=== PATIENT | male | born 1975 | race Caucasian/White ===

== ENCOUNTER 2018-01-08 16:06 | Emergency (ER) | payer OTHER, MEDICARE, MEDICAID ==
[2018-01-08] MEDS ORDERED: Adacel (T-DAP) 0.5 ML VIAL ONE (16:18)
[2018-01-08 16:26] LABS: Mean Corpuscular HGB CONC 33.4 g/dL (32.0-36.0); Mean Corpuscular Hemoglobin 32.5 pg (27.0-31.0); Mean Corpuscular Volume 97.2 fl (80.0-94.0); Mean Platelet Volume 8.9 fL (7.4-10.4); Platelet Count 287 thou/uL (130-400); RBC Distribution Width 12.6 % (11.5-14.5); Red Blood Cell (RBC) Count 4.93 mill/uL (4.70-6.10); White Blood Cell (WBC) Count 24.5 thou/uL (4.8-10.8)
[2018-01-08 16:40] LABS: Band 1 % (5-11); Eosinophils 2 % (0-10); Lymphocytes 18 % (21-51); MDiff Complete? YES; Monocytes 3 % (0-10); Neutrophil 67 % (42-75); PLT Morphology Comment Appears Adequate; RBC Morphology Normal; Reactive Lymphocytes 7 % (0-10)
[2018-01-08 16:47] LABS: ALT (SGPT) 40 U/L (8-55); AST (SGOT) 38 U/L (5-34); Albumin 4.1 g/dL (3.5-5.0); Alkaline Phosphatase 86 U/L (40-150); Anion Gap 14 mmol/L (10-20); BUN (Urea Nitrogen) 16 mg/dL (8.9-20.6); Bilirubin, Total 0.4 mg/dL (0.2-1.2); Calc. Creatinine Clearance 0 mL/min (70-130); Calcium 9.5 mg/dL (7.8-10.44); Carbon Dioxide 22 mmol/L (22-29); Chloride 105 mmol/L (98-107); Estimated GFR-MDRD 76; Globulin 3.3 g/dL (2.4-3.5); Glucose 121 mg/dL (70-105); Potassium 4.4 mmol/L (3.5-5.1); Protein, Total 7.4 g/dL (6.0-8.3); Sodium 137 mmol/L (136-145)
[2018-01-08] MEDS ORDERED: CEFAZOLIN/Water 2 GM/20 ML SYRINGE ONE (16:47)
[2018-01-08] MEDS ORDERED: Lidocaine 2% Jelly 5 ML TUBE ONE (16:49)
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
[2018-01-08] MEDS ORDERED: Ketorolac Tromethamine 30 MG/ML VIAL ONE (17:03)
[2018-01-08 17:21] LABS: Bilirubin Negative (Negative); Blood, Urine Negative (Negative); Clarity CLEAR (Clear); Glucose, Urine (Dipstick) Negative (Negative); Leukocyte Negative (Negative); Nitrite Negative (Negative); Protein, Urine (Dipstick) 30 mg/dL (Neg-Trace)
[2018-01-08 17:24] LABS: Bacteria/HPF None Seen HPF (None Seen); Hyaline Casts/LPF 4-6 HYALINE CAST LPF (0-3 Hyaline); Pathc Cast-AUWi Flag 0.54 (0-2.49); RBC/HPF 0-3 HPF (0-3); Squamous Epithelial 0-3 HPF (0-3); WBC/HPF 0-3 HPF (0-3)
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
[2018-01-08 17:28] LABS: Specific Gravity, Urine 1.045 (1.002-1.036); Sperm-AUWi Flag 83.4 (0-9.9)
[2018-01-08 17:38] LABS: Renal Epithelial None Seen HPF (0-3); Sperm/HPF 1+ HPF (None Seen); Transitional Epithelial NONE SEEN HPF (0-3)
[2018-01-08] MEDS ORDERED: Bacitracin Zinc 1 Packet ONE (17:46)
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
== END 2018-01-08 17:56 | disposition home or self-care (01) ==
LOC: ERS 16:06
DX: T14.8XXA Other injury of unspecified body region, initial encounter (principal); F31.9 Bipolar disorder, unspecified; F17.210 Nicotine dependence, cigarettes, uncomplicated; Z23 Encounter for immunization; Z71.6 Tobacco abuse counseling; V27.4XXA Motorcycle driver injured in collision with fixed or stationary object in traffic accident, initial encounter
CPT/HCPCS: 70450; 71260; 72125; 74177; 80053; 81003; 81015; 85025; 90471; 90715; 96374; 96375; 99406; G0390; J1885

== ENCOUNTER 2018-01-12 00:58 | Emergency (ER) | payer MEDICARE, MEDICAID ==
[2018-01-12] MEDS ORDERED: Ketorolac Tromethamine 30 MG/ML VIAL ONE (02:15)
[2018-01-12] MEDS ORDERED: traMADol HCl 50 MG TAB ONE (02:22)
[2018-01-12] MEDS ORDERED: Bacitracin Zinc 1 Packet ONE (02:59)
== END 2018-01-12 03:00 | disposition home or self-care (01) ==
LOC: ERS 00:58
DX: S30.811A Abrasion of abdominal wall, initial encounter (principal); I10 Essential (primary) hypertension; F31.9 Bipolar disorder, unspecified; F17.210 Nicotine dependence, cigarettes, uncomplicated; V29.9XXA Motorcycle rider (driver) (passenger) injured in unspecified traffic accident, initial encounter
CPT/HCPCS: 96372; J1885

== ENCOUNTER 2018-03-23 09:54 | Emergency (ER) | payer MEDICARE, MEDICAID ==
--- NOTE | 2018-03-23 14:15 | ULT ---
RIGHT LOWER EXTREMITY VENOUS DOPPLER ULTRASOUND EVALUATION: History Right lower extremity pain and swelling for 1 month. FINDINGS: Multiple longitudinal and transverse images of the right lower extremity venous system are obtained u sing a Multihertz linear ray transducer. Real-time color flow with spectral waveform Doppler analysi s demonstrates no evidence of acute or old clot seen in the right common femoral vein, superior vena cava, popliteal vein, posterior tibial vein, and post trifurcation veins. There do appear to be areas of clot seen in the right greater saphenous vein beginning in the proxima l calf extending to the mid calf.. The distal aspect of the greater saphenous vein is not seen. IMPRESSION: Acute noncompressive clot in the right greater saphenous vein. POS: [facility]
== END 2018-03-23 13:45 | disposition home or self-care (01) ==
LOC: ERS 09:54
DX: I82.401 Acute embolism and thrombosis of unspecified deep veins of right lower extremity (principal); I10 Essential (primary) hypertension; F31.9 Bipolar disorder, unspecified; F17.210 Nicotine dependence, cigarettes, uncomplicated

== ENCOUNTER 2018-09-20 19:24 | Inpatient (IN) | payer MEDICARE, MEDICAID ==
[2018-09-20] MEDS ORDERED: Morphine 4 MG/ML VIAL ONE ×2 (20:06→20:55)
[2018-09-20 20:32] LABS: Hemoglobin 14.9 g/dL (14.0-18.0); Mean Corpuscular HGB CONC 32.5 g/dL (32.0-36.0); Mean Corpuscular Hemoglobin 31.7 pg (27.0-31.0); Mean Corpuscular Volume 97.5 fL (78.0-98.0); Mean Platelet Volume 9.1 fL (7.4-10.4); Platelet Count 294 thou/uL (130-400); RBC Distribution Width 12.5 % (11.5-14.5); Red Blood Cell (RBC) Count 4.69 mill/uL (4.70-6.10); White Blood Cell (WBC) Count 33.7 thou/uL (4.8-10.8)
[2018-09-20] MEDS ORDERED: MEROPENEM 1 GM/50 ML 1 GM in Premix Bag 1 BAG IVPB SCH ×2 (20:45→23:00)
[2018-09-20] MEDS ORDERED: metroNIDAZOLE 500 MG in Premix Bag 1 BAG IVPB SCH (20:45)
[2018-09-20 20:53] LABS: Lymphocytes 14 % (21-51); MDiff Complete? YES; Monocytes 5 % (0-10); Neutrophil 81 % (42-75); PLT Morphology Comment Appears Adequate; RBC Morphology Normal
[2018-09-20 21:23] LABS: Albumin 3.9 g/dL (3.5-5.0)
[2018-09-20 21:24] LABS: Chloride 106 mmol/L (98-107); Potassium 4.1 mmol/L (3.5-5.1); Sodium 138 mmol/L (136-145)
[2018-09-20 21:25] LABS: Calcium 8.4 mg/dL (7.8-10.44); Glucose 98 mg/dL (70-105)
[2018-09-20 21:26] LABS: Globulin 3.1 g/dL (2.4-3.5)
[2018-09-20 21:27] LABS: Anion Gap 14 mmol/L (10-20); Bilirubin, Total 1.5 mg/dL (0.2-1.2); Carbon Dioxide 22 mmol/L (22-29)
[2018-09-20 21:28] LABS: Alkaline Phosphatase 73 U/L (40-150)
[2018-09-20 21:29] LABS: Calc. Creatinine Clearance 0 mL/min (70-130); Estimated GFR-MDRD Greater than 90
[2018-09-20 21:30] LABS: BUN (Urea Nitrogen) 10 mg/dL (8.9-20.6)
[2018-09-20 21:31] LABS: ALT (SGPT) 20 U/L (8-55); AST (SGOT) 15 U/L (5-34); Lipase 4 U/L (8-78)
--- NOTE | 2018-09-20 22:26 | ULT ---
BILATERAL LOWER EXTREMITY VENOUS DOPPLER ULTRASOUND: 09/20/2018 HISTORY: Pain. Elevated white blood cell. Tachycardia. Questionable history of right leg clot. COMPARISON: None. TECHNIQUE: Multiplanar brooks-scale sonographic imaging of the venous structures of the bilateral lower extremitie s obtained with color-flow and spectral analysis. FINDINGS: The common femoral vein, greater saphenous vein, profunda femoral vein, femoral vein, popliteal vein, and posterior tibial vein are patent. There is normal blood flow, augmentation, and compression wit hin the deep venous system bilaterally with no evidence for DVT on either side. IMPRESSION: No evidence for deep venous thrombosis of either lower extremity. POS: [facility]
[2018-09-20 22:33] VITALS: BMI 39.0
[2018-09-20] MEDS ORDERED: Ondansetron ODT 4 MG TAB SL PRN (22:42)
[2018-09-20] MEDS ORDERED: Ondansetron PF 4 MG/2 ML Vial IVP PRN (22:42)
[2018-09-20] MEDS ORDERED: Acetaminophen 325 MG TAB PO PRN (23:34)
[2018-09-21] MEDS: Morphine 2 MG/ML SYRINGE SLOW IVP PRN ×3 (00:01→14:16)
[2018-09-21] MEDS: D5 1/2 NS w/20 mEq KCL 1,000 ML IV SCH ×2 (00:04→08:35)
[2018-09-21] MEDS: metroNIDAZOLE 500 MG in Premix Bag 1 BAG IVPB SCH ×2 (00:06→08:03)
[2018-09-21] MEDS: MEROPENEM 1 GM/50 ML 1 GM in Premix Bag 1 BAG IVPB SCH ×2 (00:10→10:08)
[2018-09-21] MEDS ORDERED: Azithromycin 500 MG in Sodium Chloride 0.9% 250 ML 250 ML IVPB SCH (04:00)
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
[2018-09-21 05:20] LABS: Anion Gap 13 mmol/L (10-20); BUN (Urea Nitrogen) 11 mg/dL (8.9-20.6); Calc. Creatinine Clearance 178 mL/min (70-130); Calcium 8.7 mg/dL (7.8-10.44); Carbon Dioxide 21 mmol/L (22-29); Chloride 105 mmol/L (98-107); Estimated GFR-MDRD Greater than 90; Glucose 106 mg/dL (70-105); Potassium 4.3 mmol/L (3.5-5.1); Sodium 135 mmol/L (136-145)
[2018-09-21 05:35] LABS: Hemoglobin 13.9 g/dL (14.0-18.0); Lymphocytes 7 % (21-51); MDiff Complete? YES; Mean Corpuscular HGB CONC 31.9 g/dL (32.0-36.0); Mean Corpuscular Hemoglobin 31.4 pg (27.0-31.0); Mean Corpuscular Volume 98.3 fL (78.0-98.0); Mean Platelet Volume 9.6 fL (7.4-10.4); Monocytes 2 % (0-10); Neutrophil 91 % (42-75); PLT Morphology Comment Appears Adequate; Platelet Count 279 thou/uL (130-400); RBC Distribution Width 12.5 % (11.5-14.5); RBC Morphology Normal; Red Blood Cell (RBC) Count 4.42 mill/uL (4.70-6.10); White Blood Cell (WBC) Count 34.3 thou/uL (4.8-10.8)
[2018-09-21] MEDS: Amlodipine 5 MG TAB PO SCH (09:35)
[2018-09-21] MEDS: Sodium Chloride 0.9% 1,000 ML IV SCH ×3 (10:08→21:32)
[2018-09-21] MEDS: Enoxaparin Sodium 40 MG/0.4 ML SYRINGE SC SCH (10:21)
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
[2018-09-21] MEDS: Piperacillin/Tazobactam 4.5 GM in Sodium Chloride 0.9% 100 ML IVPB SCH ×2 (17:11→21:33)
[2018-09-21] MEDS: Ketorolac Tromethamine 30 MG/ML VIAL IVP SCH (18:14)
[2018-09-21] MEDS: Acetaminophen 1,000 MG in Premix Bag 1 BAG IVPB SCH (18:18)
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
[2018-09-22] MEDS: Ketorolac Tromethamine 30 MG/ML VIAL IVP SCH ×4 (00:52→17:39)
[2018-09-22] MEDS: Acetaminophen 1,000 MG in Premix Bag 1 BAG IVPB SCH ×4 (00:53→17:39)
--- NOTE | 2018-09-22 03:21 | PDOC.PN ---
- Subjective Encounter Start Date: 09/21/18 Encounter Start Time: 09:00 Subjective: pt up in bed complains of abdomen pain - Objective Resuscitation Status: Resuscitation Status FULL:Full Resuscitation Vital Signs & Weight: Vital Signs (12 hours) Temp Pulse Resp BP Pulse Ox 09/21/18 20:25 97.8 F 84 16 120/71 96 09/21/18 15:58 98.5 F 93 18 136/65 98 Weight Weight 249 lb 4 oz I&O: 09/20/18 09/21/18 09/22/18 06:59 06:59 06:59 Intake Total 800 Output Total 825 Balance -25 Result Diagrams: 09/21/18 04:25 09/21/18 04:25 Phys Exam - Physical Examination Neck: no nodes, no JVD, supple, full ROM Respiratory: no wheezing, no rales, no rhonchi, wheezing present, clear to auscultation bilateral Cardiovascular: RRR, no significant murmur, no rub, gallop, irregular Gastrointestinal: soft, positive bowel sounds mild abdomen pain on palpation of lower abdomen Dx/Plan (1) Diverticulitis Code(s): K57.92 - DVTRCLI OF INTEST, PART UNSP, W/O PERF OR ABSCESS W/O BLEED Status: Acute (2) DVT (deep venous thrombosis) Code(s): I82.409 - ACUTE EMBOLISM AND THOMBOS UNSP DEEP VN UNSP LOWER EXTREMITY Status: Acute - Plan pt had unprovoked dvt and has been on AC for 3-4 months -: will discontinue meropenem since no indication for perforation on ct -: continue iv fluids and npo status -: Ac on hold * . Review of Systems - Review of Systems Respiratory: negative: Cough, Dry, Shortness of Breath, Hemoptysis, SOB with Excertion, Pleuritic Pain, Sputum, Wheezing Cardiovascular: negative: chest pain, palpitations, orthopnea, paroxysmal nocturnal dyspnea, edema, light headedness, other Gastrointestinal: Abdominal Pain Genitourinary: negative: Dysuria, Frequency, Incontinence, Hematuria, Retention , Other - Medications/Allergies Allergies/Adverse Reactions: Allergies Allergy/AdvReac Type Severity Reaction Status Date / Time codeine Allergy Verified 09/20/18 22:35 Medications: Current Medications Amlodipine Besylate (Norvasc) 5 mg PO DAILY [facility] Last Admin: 09/21/18 09:35 Dose: Not Given Enoxaparin Sodium (Lovenox) 40 mg SC DAILY [facility] Last Admin: 09/21/18 10:21 Dose: Not Given Sodium Chloride (Normal Saline 0.9%) 1,000 mls @ 100 mls/hr IV .Q10H [facility] Last Admin: 09/21/18 21:32 Dose: 1,000 mls Acetaminophen 1,000 mg/ Device 100 mls @ 400 mls/hr IVPB Q6HR [facility] Stop: 09/22/18 18:01 Last Admin: 09/22/18 00:53 Dose: 100 mls Piperacillin Sod/Tazobactam (Sod 4.5 gm/ Sodium Chloride) 100 mls @ 200 mls/hr IVPB 0400,1000,1600,2200 [facility] Last Admin: 09/21/18 21:33 Dose: 100 mls Ketorolac Tromethamine (Toradol) 30 mg IVP Q6HR [facility] Stop: 09/26/18 18:01 Last Admin: 09/22/18 00:52 Dose: 30 mg Morphine Sulfate (Morphine) 2 mg SLOW IVP Q6H PRN PRN Reason: Moderate to Severe Pain (6-10) Last Admin: 09/21/18 14:16 Dose: 2 mg Sodium Chloride (Flush - Normal Saline) 10 ml IVF Q12HR [facility] Last Admin: 09/21/18 21:40 Dose: 10 ml Sodium Chloride (Flush - Normal Saline) 10 ml IVF PRN PRN PRN Reason: Saline Flush
[2018-09-22] MEDS: Piperacillin/Tazobactam 4.5 GM in Sodium Chloride 0.9% 100 ML IVPB SCH ×4 (04:40→21:54)
[2018-09-22 05:14] LABS: #Basophils 0.1 thou/uL (0.0-0.2); #Eosinphils 0.5 thou/uL (0.0-0.7); #Lymphocytes 4.1 thou/uL (1.20-3.40); #Monocytes 2.3 thou/uL (0.11-0.59); #Neutrophils 16.1 thou/uL (1.40-6.50); %Basophils 0.4 % (0.0-1.0); %Eosinophils 2.1 % (0.0-10.0); %Lymphocytes 17.8 % (21.0-51.0); %Monocytes 10.1 % (0.0-10.0); %Neutrophils 69.6 % (42.0-75.0); Mean Corpuscular HGB CONC 30.6 g/dL (32.0-36.0); Mean Platelet Volume 9.9 fL (7.4-10.4); Platelet Count 273 thou/uL (130-400); RBC Distribution Width 12.4 % (11.5-14.5); Red Blood Cell (RBC) Count 4.33 mill/uL (4.70-6.10); White Blood Cell (WBC) Count 23.2 thou/uL (4.8-10.8)
[2018-09-22] MEDS: Amlodipine 5 MG TAB PO SCH (09:33)
[2018-09-22] MEDS: Enoxaparin Sodium 40 MG/0.4 ML SYRINGE SC SCH (10:40)
--- NOTE | 2018-09-22 13:01 | PQF ---
DATE: 09-22-18 ATTN : DR. BIMAL SALCEDO Please exercise your independent, professional judgment in responding to the clarification form. Clinical indicators are provided on the bottom of this form for your review Please check appropriate box(es): [ ] Sepsis due to: (Perforated Diverticulitis, etc.) _ [ ] SIRS due to non-infectious process (please specify etiology) [ ] Localized infection without sepsis [ ] Other diagnosis [ ] Unable to determine In addition, please specify: Present on Admission (POA): [ ] Yes [ ] No [ ] Unable to determine For continuity of documentation, please document condition throughout progress notes and discharge summary. Thank You. CLINICAL INDICATORS - SIGNS / SYMPTOMS / LABS ER DX: COMPLICATED DIVERTICULITIS, SEPSIS H&P: ACUTE PERFORATED DIVERTICULITIS ER DOCUMENTATION: PT PRESENTED TO [place] WITH ABD PAIN WELL N/V/D LAST FEW DAYS, TEMP 102.6, PT WAS TACHY AT 114, WC WAS 34,000, LACTATE OF 2.[address] GONGORA 09-21-18: ANTICOAGULATED DIVERTICULITIS WBC: 09-20-18: 33.7 09-21-18: 34.3 09-22-18: 23.2 PULSE: ER: 105, 102 11-20-17: 105 RISK FACTORS: ER DX: COMPLICATED DIVERTICULITIS, SEPSIS H&P: ACUTE PERFORATED DIVERTICULITIS TREATMENTS: ER: MEROPENEM IV, METRONIDAZOLE IN NACL IV, LEVAQUIN IV, IVF (This form is maintained as a part of the permanent medical record) 2014 [employer] All Rights Reserved JEANE [email or web address] Office: [phone] [facility] HOSPITALSus[facility]
[2018-09-22] MEDS: Sodium Chloride 0.9% 1,000 ML IV SCH (15:06)
--- NOTE | 2018-09-22 15:59 | PRG ---
DATE OF SERVICE: 09/22/2018 SUBJECTIVE: Mr. Muhammad is doing better today. He is hungry. OBJECTIVE: VITAL SIGNS: Temperature 97.5 degrees, 81, 152/74. LUNGS: Clear to auscultation. CARDIAC: Regular rate and rhythm without murmur or gallop. ABDOMEN: Obese, protuberant, slight tenderness and guarding in the lower abdomen, but much less tend er upper abdomen. LABORATORY DATA: This morning, his white count is decreased to 23,000 from 33,000 on admission. Bas ic metabolic profile essentially unremarkable. Sodium 135. ASSESSMENT AND PLAN: Resolving diverticulitis. Continue Zosyn high dose. Advance to clear liquids. Dr. Sorto will see the patient tomorrow. Dr. Cohen will be covering over the holidays. Patient should be discharged home on a low fiber diet for 2-3 weeks, transition to high fiber. We will ask khushbu navarro to see him regarding that.
--- NOTE | 2018-09-22 18:09 | PDOC.PN ---
- Subjective Encounter Start Date: 09/22/18 Encounter Start Time: 11:00 Patient seen and examined for Sepsis. Abd pain improving. No new complaints. No overnight events - Objective Resuscitation Status: Resuscitation Status FULL:Full Resuscitation MAR Reviewed: Yes Vital Signs & Weight: Vital Signs (12 hours) Temp Pulse Resp BP Pulse Ox 09/22/18 16:45 97 09/22/18 16:20 97.6 F 77 18 132/88 97 09/22/18 15:22 97.8 F 82 16 129/87 98 09/22/18 11:52 97.5 F L 81 18 152/74 H 97 09/22/18 09:33 69 09/22/18 07:55 97.5 F L 69 18 118/70 96 Weight Weight 251 lb 11.2 oz I&O: 09/21/18 09/22/18 09/23/18 06:59 06:59 06:59 Intake Total 800 1600 Output Total 825 800 Balance -25 800 Result Diagrams: 09/23/18 03:41 09/23/18 03:41 EKG Reviewed by me: Yes (Tele SR) Phys Exam - Physical Examination Constitutional: NAD Respiratory: no wheezing, no rhonchi Cardiovascular: RRR, no rub Gastrointestinal: soft, positive bowel sounds mild gen tenderness/ no rebound/guarding Musculoskeletal: no edema Neurological: moves all 4 limbs Dx/Plan - Plan DVT proph w/SCDs 1. Sepsis due to Acute complicated Diverticulitis 2. HTN 3. Tobacco dep 4. h/o DVT - on anticoag - completed 3 months Tx 5. Obesity BMI 39.4 PLAN Clear liqd diet per Gen surg Cont Zosyn Cont IVF Transfer to medical AM labs Review of Systems - Review of Systems Cardiovascular: negative: chest pain, palpitations, orthopnea, paroxysmal nocturnal dyspnea, edema, light headedness, other Gastrointestinal: negative: Nausea, Vomiting, Abdominal Pain, Diarrhea, Constipation, Melena, Hematochezia, Other - Medications/Allergies Allergies/Adverse Reactions: Allergies Allergy/AdvReac Type Severity Reaction Status Date / Time codeine Allergy Verified 09/20/18 22:35 Medications: Current Medications Amlodipine Besylate (Norvasc) 5 mg PO DAILY [facility] Last Admin: 09/22/18 09:33 Dose: 5 mg Sodium Chloride (Normal Saline 0.9%) 1,000 mls @ 100 mls/hr IV .Q10H [facility] Last Admin: 09/22/18 15:06 Dose: Not Given Piperacillin Sod/Tazobactam (Sod 4.5 gm/ Sodium Chloride) 100 mls @ 200 mls/hr IVPB 0400,1000,1600,2200 [facility] Last Admin: 09/22/18 15:29 Dose: 100 mls Ketorolac Tromethamine (Toradol) 30 mg IVP Q6HR [facility] Stop: 09/26/18 18:01 Last Admin: 09/22/18 17:39 Dose: Not Given Morphine Sulfate (Morphine) 2 mg SLOW IVP Q6H PRN PRN Reason: Moderate to Severe Pain (6-10) Last Admin: 09/21/18 14:16 Dose: 2 mg Sodium Chloride (Flush - Normal Saline) 10 ml IVF Q12HR [facility] Last Admin: 09/22/18 09:33 Dose: 10 ml Sodium Chloride (Flush - Normal Saline) 10 ml IVF PRN PRN PRN Reason: Saline Flush
[2018-09-23] MEDS: Ketorolac Tromethamine 30 MG/ML VIAL IVP SCH ×5 (01:34→22:14)
[2018-09-23] MEDS: Morphine 2 MG/ML SYRINGE SLOW IVP PRN (01:35)
[2018-09-23] MEDS: Sodium Chloride 0.9% 1,000 ML IV SCH ×3 (01:37→20:07)
[2018-09-23 01:48] LABS: CKMB 5.5 ng/mL (0-6.6); Troponin I Less than 0.010 ng/mL (< 0.028)
[2018-09-23] MEDS: Piperacillin/Tazobactam 4.5 GM in Sodium Chloride 0.9% 100 ML IVPB SCH ×4 (03:33→21:07)
[2018-09-23 04:35] LABS: #Basophils 0.2 thou/uL (0.0-0.2); #Eosinphils 0.6 thou/uL (0.0-0.7); #Lymphocytes 4.5 thou/uL (1.20-3.40); #Monocytes 1.8 thou/uL (0.11-0.59); #Neutrophils 11.3 thou/uL (1.40-6.50); %Basophils 1.1 % (0.0-1.0); %Eosinophils 3.3 % (0.0-10.0); %Lymphocytes 24.3 % (21.0-51.0); %Monocytes 9.9 % (0.0-10.0); %Neutrophils 61.5 % (42.0-75.0); Hemoglobin 13.2 g/dL (14.0-18.0); Mean Corpuscular Hemoglobin 31.6 pg (27.0-31.0); Mean Corpuscular Volume 98.9 fL (78.0-98.0); Mean Platelet Volume 9.9 fL (7.4-10.4); Platelet Count 301 thou/uL (130-400); RBC Distribution Width 12.4 % (11.5-14.5); Red Blood Cell (RBC) Count 4.17 mill/uL (4.70-6.10); White Blood Cell (WBC) Count 18.3 thou/uL (4.8-10.8)
[2018-09-23 05:16] LABS: ALT (SGPT) 22 U/L (8-55); AST (SGOT) 27 U/L (5-34); Albumin 3.6 g/dL (3.5-5.0); Alkaline Phosphatase 82 U/L (40-150); Anion Gap 14 mmol/L (10-20); BUN (Urea Nitrogen) 7 mg/dL (8.9-20.6); Bilirubin, Total 0.5 mg/dL (0.2-1.2); Calc. Creatinine Clearance 198 mL/min (70-130); Calcium 9.1 mg/dL (7.8-10.44); Carbon Dioxide 25 mmol/L (22-29); Chloride 105 mmol/L (98-107); Estimated GFR-MDRD Greater than 90; Globulin 3.5 g/dL (2.4-3.5); Glucose 97 mg/dL (70-105); Magnesium 2.3 mg/dL (1.6-2.6); Potassium 3.8 mmol/L (3.5-5.1); Protein, Total 7.1 g/dL (6.0-8.3); Sodium 140 mmol/L (136-145)
[2018-09-23 08:06] LABS: CKMB 5.4 ng/mL (0-6.6); Troponin I Less than 0.010 ng/mL (< 0.028)
[2018-09-23] MEDS: Amlodipine 5 MG TAB PO SCH (08:38)
[2018-09-23] MEDS: Saccharomyces boulardii 250 MG CAP PO SCH (08:38)
--- NOTE | 2018-09-23 09:04 | PRG ---
DATE OF SERVICE: 09/23/2018 SUBJECTIVE: The patient says he feels a lot better. He is hungry and wants some more to eat. He is passing some liquid stools, some flatus. He really wants to go home. OBJECTIVE: VITAL SIGNS: On examination, his temperature is 97.8, pulse 75, blood pressure 144/89. GENERAL: He looks much better. ABDOMEN: Still a little bit distended, minimal tenderness, it is almost completely resolved. LABORATORY DATA: His white count is 18.3, down from a high of 34, and 23 yesterday; H and H 13 and 4 1, platelet count 301. ASSESSMENT: Improved diverticulitis. PLAN: Full liquid diet. He is not ready to go home and he needs at least another day or two of IV a ntibiotics.
[2018-09-23 14:07] LABS: CKMB 5.7 ng/mL (0-6.6); Troponin I Less than 0.010 ng/mL (< 0.028)
[2018-09-23] MEDS: Famotidine 20 MG TAB PO SCH (20:07)
[2018-09-24] MEDS: Ketorolac Tromethamine 30 MG/ML VIAL IVP SCH (04:49)
[2018-09-24] MEDS: Sodium Chloride 0.9% 1,000 ML IV SCH (04:49)
[2018-09-24] MEDS: Piperacillin/Tazobactam 4.5 GM in Sodium Chloride 0.9% 100 ML IVPB SCH (04:49)
[2018-09-24 05:44] LABS: Band 3 % (5-11); Eosinophils 3 % (0-10); Hemoglobin 13.7 g/dL (14.0-18.0); Lymphocytes 34 % (21-51); MDiff Complete? YES; Mean Corpuscular HGB CONC 31.4 g/dL (32.0-36.0); Mean Corpuscular Hemoglobin 30.8 pg (27.0-31.0); Mean Corpuscular Volume 98.1 fL (78.0-98.0); Mean Platelet Volume 9.6 fL (7.4-10.4); Monocytes 11 % (0-10); Neutrophil 49 % (42-75); Platelet Count 329 thou/uL (130-400); RBC Distribution Width 12.5 % (11.5-14.5); Red Blood Cell (RBC) Count 4.43 mill/uL (4.70-6.10); White Blood Cell (WBC) Count 16.2 thou/uL (4.8-10.8)
[2018-09-24 05:58] LABS: Albumin 3.6 g/dL (3.5-5.0)
[2018-09-24 05:59] LABS: Calcium 9.2 mg/dL (7.8-10.44); Chloride 109 mmol/L (98-107); Magnesium 2.3 mg/dL (1.6-2.6); Sodium 142 mmol/L (136-145)
[2018-09-24 06:00] LABS: Glucose 95 mg/dL (70-105)
[2018-09-24 06:01] LABS: Globulin 3.1 g/dL (2.4-3.5); Protein, Total 6.7 g/dL (6.0-8.3)
[2018-09-24 06:02] LABS: Anion Gap 11 mmol/L (10-20); Bilirubin, Total 0.7 mg/dL (0.2-1.2); Carbon Dioxide 26 mmol/L (22-29)
[2018-09-24 06:03] LABS: Alkaline Phosphatase 74 U/L (40-150)
[2018-09-24 06:04] LABS: BUN (Urea Nitrogen) 5 mg/dL (8.9-20.6); Calc. Creatinine Clearance 186 mL/min (70-130); Estimated GFR-MDRD Greater than 90
[2018-09-24 06:05] LABS: AST (SGOT) 28 U/L (5-34)
[2018-09-24 06:06] LABS: ALT (SGPT) 28 U/L (8-55)
[2018-09-24] MEDS ORDERED: Sodium Chloride 0.9% 1,000 ML IV SCH (06:28)
--- NOTE | 2018-09-24 06:29 | PDOC.PN ---
- Subjective Encounter Start Date: 09/23/18 Encounter Start Time: 10:30 Patient seen and examined on 09/23. Abd pain improving. No N/V. Had loose BM earlier today. No new complaints. No overnight events - Objective Resuscitation Status: Resuscitation Status FULL:Full Resuscitation MAR Reviewed: Yes Vital Signs & Weight: Vital Signs (12 hours) Temp Pulse Resp BP Pulse Ox 09/23/18 20:00 98.2 F 71 18 132/91 H 98 Weight Weight 251 lb 11.2 oz I&O: 09/22/18 09/23/18 09/24/18 06:59 06:59 06:59 Intake Total 1600 Output Total 800 Balance 800 Result Diagrams: 09/24/18 04:11 09/24/18 05:37 Phys Exam - Physical Examination Constitutional: NAD Respiratory: no wheezing, no rhonchi Cardiovascular: RRR, no rub Gastrointestinal: soft, positive bowel sounds mild gen tend, no rebound/guarding Musculoskeletal: no edema Neurological: non-focal Dx/Plan - Plan DVT proph w/SCDs 1. Sepsis due to Acute complicated Diverticulitis 2. HTN 3. Tobacco dep 4. h/o DVT - on anticoag - completed 3 months Tx 5. Obesity BMI 39.4 PLAN Full liqd diet Cont Zosyn WBC improving Cont IVF AM labs Review of Systems - Review of Systems Respiratory: negative: Cough, Dry, Shortness of Breath, Hemoptysis, SOB with Excertion, Pleuritic Pain, Sputum, Wheezing Cardiovascular: negative: chest pain, palpitations, orthopnea, paroxysmal nocturnal dyspnea, edema, light headedness, other - Medications/Allergies Allergies/Adverse Reactions: Allergies Allergy/AdvReac Type Severity Reaction Status Date / Time codeine Allergy Verified 09/20/18 22:35 Medications: Current Medications Amlodipine Besylate (Norvasc) 5 mg PO DAILY [facility] Last Admin: 09/23/18 08:38 Dose: 5 mg Famotidine (Pepcid) 20 mg PO BID [facility] Last Admin: 09/23/18 20:07 Dose: 20 mg Sodium Chloride (Normal Saline 0.9%) 1,000 mls @ 100 mls/hr IV .Q10H [facility] Last Admin: 09/24/18 04:49 Dose: Not Given Piperacillin Sod/Tazobactam (Sod 4.5 gm/ Sodium Chloride) 100 mls @ 200 mls/hr IVPB 0400,1000,1600,2200 [facility] Last Admin: 09/24/18 04:49 Dose: 100 mls Ketorolac Tromethamine (Toradol) 30 mg IVP Q6HR [facility] Stop: 09/26/18 18:01 Last Admin: 09/24/18 04:49 Dose: Not Given Morphine Sulfate (Morphine) 2 mg SLOW IVP Q6H PRN PRN Reason: Moderate to Severe Pain (6-10) Last Admin: 09/23/18 01:35 Dose: 2 mg Saccharomyces Boulardii (Florastor) 250 mg PO DAILY [facility] Last Admin: 09/23/18 08:38 Dose: 250 mg Sodium Chloride (Flush - Normal Saline) 10 ml IVF Q12HR [facility] Last Admin: 09/23/18 20:08 Dose: 10 ml Sodium Chloride (Flush - Normal Saline) 10 ml IVF PRN PRN PRN Reason: Saline Flush
[2018-09-24 07:38] VITALS: BP 129/80; TEMP 97.9
[2018-09-24] MEDS: Amlodipine 5 MG TAB PO SCH (08:48)
[2018-09-24] MEDS: Famotidine 20 MG TAB PO SCH (08:48)
[2018-09-24] MEDS: Saccharomyces boulardii 250 MG CAP PO SCH (08:49)
--- NOTE | 2018-09-24 09:13 | PRG ---
DATE OF SERVICE: 09/24/2018 SUBJECTIVE: Mr. Muhammad is doing well. He is tolerating the full liquids. His pain he describes as nearly gone. OBJECTIVE: VITAL SIGNS: He is afebrile. Vital signs are stable. ABDOMEN: Soft, mildly tender only in the left lower quadrant. No guarding or rebound. ASSESSMENT: Acute complicated diverticulitis, now improved with IV antibiotics. No need for surgery . Okay to be discharged home. It sounds like prescriptions have already been sent over by the [facility] talist including Cathleen and Christie, which is what I would recommend. PLAN: Transitioned to oral antibiotics by mouth. Discharge home. I told him to do more soup type d iet for few days, then casserole diet for few days and then diet as tolerated. No salad or raw fruit s and veggies.
--- NOTE | 2018-09-24 11:39 | DIS ---
DATE OF DISCHARGE: 09/24/2018 DISCHARGE DISPOSITION: Home. FOLLOWUP: Follow up with primary care physician, Dr. Velázquez, in 1 week. Follow up with General Ra[facility]do, Dr. Sorto, in 1-2 weeks. ALLERGIES: The patient is allergic to CODEINE. DISCHARGE MEDICATIONS: Amlodipine 5 mg daily, ciprofloxacin 500 mg twice a day for 14 days, Flagyl 5 00 mg three times daily for 14 days, Florastor 250 mg daily for 14 days. INPATIENT CONSULTANTS: General Surgery, Dr. Sorto/Dr. Miller. DIAGNOSTIC TESTS: Blood cultures negative. Stool for C. difficile was negative. WBC on admission 3 4.5 and at discharge 16.2. Troponins were negative. Sodium on admission 135 and at discharge 142. Urinalysis was negative for WBC or bacteria. CT scan of the abdomen and pelvis on admission showed 1 0 cm segment of thick-walled inflamed sigmoid colon with prominent adjacent pericolonic fat stranding suggestive of acute sigmoid diverticulitis. There was no drainable abscess or evidence of free intr aperitoneal air. Bilateral lower extremity Doppler was negative for DVT. BRIEF HOSPITAL COURSE: Patient is a 43-year-old male, who presented to the hospital with abdominal d iscomfort. Please refer to the history and physical for further details. The patient was admitted to the hospital with a diagnosis of complicated diverticulitis. He was eval uated by General Surgery, Dr. Sorto/Dr. Miller. He was started on broad-spectrum antibiotics. Later on per General Surgery recommendation, it was changed to Zosyn. He was kept n.p.o. His pain was co ntrolled with IV narcotics. His abdominal pain has significantly improved. His diet has been advanc ed to full liquid diet. He will continue ciprofloxacin and Flagyl for 2 weeks per General Surgery re commendation. He has been cleared by General Surgery for discharge. He was extensively counseled on diet modification and diverticulosis. The patient was on Eliquis on admission for history of right lower extremity venous thrombosis. Bila teral lower extremity Doppler was negative. Eliquis has been discontinued since he has completed mor e than 3 months of treatment. Plan of care was discussed with the patient in detail. He stated unde rstanding. DIET AT DISCHARGE: The patient was advised to stay on full liquid diet for a couple of days and grad ually advance per General Surgery instructions. FINAL DIAGNOSES: 1. Sepsis with acute organ dysfunction, secondary to acute complicated diverticulitis. 2. Hypertension. 3. Tobacco dependence. 4. History of DVT, completed anticoagulation. 5. Obesity with a BMI 39.4. 6. Bipolar disorder. 7. Dehydration on admission. 8. Hyponatremia, resolved. 9. Hypokalemia, replaced. 10. Lactic acidosis on admission, resolved. 11. Abnormal liver function tests, secondary to sepsis, resolved.
--- NOTE | 2018-09-27 22:04 | EKG ---
Test Reason : Blood Pressure : / mmHG Vent. Rate : 079 BPM Atrial Rate : 079 BPM P-R Int : 172 ms QRS Dur : 086 ms QT Int : 398 ms P-R-T Axes : 041 005 011 degrees QTc Int : 456 ms Normal sinus rhythm Low voltage QRS Cannot rule out Inferior infarct (cited on or before 16-FEB-2017) Abnormal ECG When compared with ECG of 16-FEB-2017 14:30, (Unconfirmed) No significant change was found Confirmed by SUMMER MARROQUIN (2) on 09/27/2018 10:04:30 PM Referred By: PETER Confirmed By:SUMMER MARROQUIN
== END 2018-09-24 10:53 | disposition home or self-care (01) | DRG 872 ==
LOC: ERS 19:24 → 2NO 21:44 → T4-A 09-22 16:35
PROVIDERS: ADMIT Internal Medicine; ATTEND Internal Medicine
DX: A41.9 Sepsis, unspecified organism (principal); E87.1 Hypo-osmolality and hyponatremia; E87.2 Acidosis; K57.20 Diverticulitis of large intestine with perforation and abscess without bleeding; R65.20 Severe sepsis without septic shock; F17.210 Nicotine dependence, cigarettes, uncomplicated; I10 Essential (primary) hypertension; Z86.718 Personal history of other venous thrombosis and embolism; E66.9 Obesity, unspecified; Z68.39 Body mass index [BMI] 39.0-39.9, adult; F31.9 Bipolar disorder, unspecified; E86.0 Dehydration; E87.6 Hypokalemia; Z88.5 Allergy status to narcotic agent; Z90.81 Acquired absence of spleen; Z90.2 Acquired absence of lung [part of]
CPT/HCPCS: 36415; 80048; 80053; 82553; 83690; 83735; 84484; 85025; 87324; 87449; 93005; 93010; 93970; 96365; 96375; 96376; J0131; J0456; J1650; J1885; J1956; J2185; J2270; J2543; J7050

== ENCOUNTER 2018-12-09 09:41 | Outpatient (CLI) | payer MEDICARE, MEDICAID ==
--- NOTE | 2018-12-09 12:14 | MRI ---
MRI CERVICAL SPINE WITHOUT CONTRAST: INDICATIONS: Cervical radiculopathy and left arm pain. COMPARISON: CT cervical spine dated 01/08/2018. FINDINGS: The visualized aspects of the posterior fossa are unremarkable appearing. The craniocervical junction appears within normal limits. At C2-C3, there is no appreciable central canal or neural foraminal narrowing. At C3-C4, there is uncovertebral hypertrophy and facet joint degenerative change, inducing mild bilat eral neural foraminal narrowing, left greater than right. At C4-C5, there is uncovertebral hypertrophy and facet joint degenerative change, inducing mild left neural foraminal narrowing. At C5-C6, there is a broad-based bulge causing mild central canal narrowing and mild ventral effaceme nt of the spinal cord. There is uncovertebral hypertrophy and facet joint degenerative change, induc ing severe bilateral neural foraminal narrowing. At C6-C7, there is uncovertebral hypertrophy versus facet joint degenerative change, inducing moderat e to severe bilateral neural foraminal narrowing. At C7-T1, there is no appreciable central canal or neural foraminal narrowing. IMPRESSION: 1. Mild central canal narrowing and mild ventral effacement of the spinal cord at C5-C6. There is s evere bilateral neural foraminal narrowing. 2. Moderate to severe bilateral neural foraminal narrowing at C6-C7 due to broad-based bulge, uncove rtebral hypertrophy, and facet joint degenerative change. POS: CET
== END 2018-12-09 09:42 | disposition home or self-care (01) ==
LOC: MRI 09:41
PROVIDERS: ATTEND Family Medicine
DX: M47.22 Other spondylosis with radiculopathy, cervical region (principal); M48.02 Spinal stenosis, cervical region; M50.123 Cervical disc disorder at C6-C7 level with radiculopathy
CPT/HCPCS: 72141

== ENCOUNTER 2019-03-10 04:57 | Outpatient (CLI) | payer MEDICARE, MEDICAID ==
[2019-03-10 13:51] LABS: Hemoglobin 16.2 g/dL (14.0-18.0); Mean Corpuscular HGB CONC 32.6 g/dL (32.0-36.0); Mean Corpuscular Hemoglobin 31.9 pg (27.0-31.0); Mean Platelet Volume 10.1 fL (7.4-10.4); Platelet Count 278 thou/uL (130-400); RBC Distribution Width 13.1 % (11.5-14.5); Red Blood Cell (RBC) Count 5.07 mill/uL (4.70-6.10); White Blood Cell (WBC) Count 14.8 thou/uL (4.8-10.8)
[2019-03-10 14:07] LABS: Anion Gap 13 mmol/L (10-20); BUN (Urea Nitrogen) 10 mg/dL (8.9-20.6); Calc. Creatinine Clearance 0 mL/min (70-130); Calcium 9.8 mg/dL (7.8-10.44); Carbon Dioxide 27 mmol/L (22-29); Chloride 104 mmol/L (98-107); Estimated GFR-MDRD Greater than 90; Glucose 82 mg/dL (70-105); Potassium 4.4 mmol/L (3.5-5.1); Sodium 140 mmol/L (136-145)
== END 2019-03-10 04:58 | disposition home or self-care (01) ==
LOC: LABBT 04:57
PROVIDERS: ATTEND Neurological Surgery
DX: Z01.818 Encounter for other preprocedural examination (principal); M54.12 Radiculopathy, cervical region
CPT/HCPCS: 80048; 85027; 93005; 93010

== ENCOUNTER 2019-03-15 05:55 | Day surgery (SDC) | payer MEDICARE, MEDICAID ==
[2019-03-10 12:52] VITALS: BMI 37.0
[2019-03-15] MEDS ORDERED: Sodium Chloride 0.9% 10 ML ONE (06:35)
[2019-03-15] MEDS ORDERED: Fentanyl 100 MCG/2 ML VIAL ONE ×3 (06:55→09:03)
[2019-03-15] MEDS ORDERED: SUGAMMADEX SODIUM 200 MG/2 ML VIAL ONE (07:54)
[2019-03-15] MEDS ORDERED: diphenhydrAMINE 50 MG/ML VIAL ONE (09:15)
[2019-03-15] MEDS ORDERED: Dexamethasone 20 MG/5 ML VIAL ONE (09:27)
[2019-03-15] MEDS ORDERED: PROPOFOL 200 MG/20 ML VIAL ONE (09:27)
[2019-03-15] MEDS ORDERED: Rocuronium Bromide 10 MG/ML (10ML VIAL) ONE (09:27)
[2019-03-15] MEDS ORDERED: Lidocaine 2% PF 5 ML VIAL ONE (09:27)
[2019-03-15] MEDS ORDERED: Ondansetron PF 4 MG/2 ML Vial ONE (09:27)
[2019-03-15] MEDS ORDERED: Labetalol HCl 100 MG/20 ML VIAL ONE ×2 (09:36→11:02)
--- NOTE | 2019-03-15 12:12 | OP ---
DATE OF PROCEDURE: 03/15/2019 ON SITE NURSE: Jaime. PROCEDURES PERFORMED: Anterior cervical diskectomy at C5-6, interbody arthrodesis, intervertebral biomechanical device, local morselized autograft, demineralized bone matrix, anterior titanium instrumentation at C5-6. DESCRIPTION OF PROCEDURE: The patient was brought to the operating room and intubated. He was positioned supine with head in modest extension on a gel-filled donut. Incision was made in the right precervical area and dissected medial to the sternocleidomastoid muscle and identified the anterior cervical spinal and the level was confirmed by x-ray. We placed distraction across the disk space, and using operative microscope and microdissection techniques, completely removed the intervertebral disk, decompressing the spinal cord from foramen to foramen. The bony endplates were then decorticated for the purpose of arthrodesis and appropriate-sized intervertebral biomechanical PEEK device was brought into the field. It was filled with demineralized bone matrix with local morselized autograft and tapped into place securely at C5-C6. Next, an anterior plate was brought into the field and secured to C5 and C6 using two 14-mm screws at each level. The wound was then extensively irrigated. Maximum hemostasis was secured, and the wound was closed in anatomic layers. Job ID: [id number]
== END 2019-03-15 11:30 | disposition home or self-care (01) ==
LOC: SDC 05:55
PROVIDERS: ATTEND Neurological Surgery
PROC: 0RG10A0 Fusion of Cervical Vertebral Joint with Interbody Fusion Device, Anterior Approach, Anterior Column, Open Approach (ICD-10-PCS; principal; 2019-03-15)
PROC: 0RT30ZZ Resection of Cervical Vertebral Disc, Open Approach (ICD-10-PCS; 2019-03-15)
DX: M50.122 Cervical disc disorder at C5-C6 level with radiculopathy (principal); I10 Essential (primary) hypertension; Z79.899 Other long term (current) drug therapy; Z88.5 Allergy status to narcotic agent
CPT/HCPCS: 20930; 20936; 22551; 22845; 22853; 76000; C1713; C1776; J0131; J0690; J1100; J1200; J2001; J2405; J2704; J3010; J3490; J7620

== ENCOUNTER 2019-03-30 15:40 | Outpatient (CLI) | payer MEDICARE, MEDICAID ==
--- NOTE | 2019-03-30 16:21 | RAD ---
5 views of the cervical spine: 03/30/2019 HISTORY: Evaluate cervical spine following surgery FINDINGS: Open-mouth odontoid view demonstrates a normal-appearing dens and C1-2 articulation. Postop erative hardware overlies the mandible on the right. Anterior discectomy and fusion hardware is present at C5-6. There is disc space narrowing and anterior osteophyte formation at C4-5. No anteroli sthesis or retrolisthesis is noted. Mild prevertebral soft tissue swelling noted anterior to the postoperative hardware. IMPRESSION: Postoperative changes as described above.
== END 2019-03-30 15:41 | disposition home or self-care (01) ==
LOC: TBSIIMAG 15:40
PROVIDERS: ATTEND Neurological Surgery
DX: M54.12 Radiculopathy, cervical region (principal); Z98.890 Other specified postprocedural states
CPT/HCPCS: 72040

== ENCOUNTER 2019-05-18 13:34 | Outpatient (CLI) | payer MEDICARE, MEDICAID ==
--- NOTE | 2019-05-18 14:16 | RAD ---
CERVICAL SPINE SERIES 3 VIEWS: HISTORY: Followup surgery. COMPARISON: 03/30/2019 exam. FINDINGS: Anterior cervical fusion is again noted at the C5-6 level. Markers of disk implants within the confi kelsie of the disk level. This is some mild degenerative disk narrowing at C4-5 and C6-7. IMPRESSION: Postoperative changes of the spine. Diminishing soft tissue swelling present. POS: OFF
== END 2019-05-18 13:35 | disposition home or self-care (01) ==
LOC: TBSIIMAG 13:34
PROVIDERS: ATTEND Neurological Surgery
DX: M54.12 Radiculopathy, cervical region (principal); M79.89 Other specified soft tissue disorders; Z98.890 Other specified postprocedural states
CPT/HCPCS: 72040